=== PATIENT | male | born 1960 | race Caucasian/White ===

== ENCOUNTER → 2020-09-07 | Outpatient (REF) | payer OTHER ==
[2020-09-07 18:22] LABS: BACTERIA, URINE AUTO NEGATIVE (NEGATIVE); MUCUS, URINE SMALL (NEGATIVE); RBC, URINE AUTO 1 /HPF (0-3); SQUAMOUS EPITHELIAL CELL UR AU 0 /HPF (0-6); WBC, URINE AUTO 1 /HPF (0-3)
== END ==
LOC: M SMT 16:38
PROVIDERS: ATTEND Specialist
DX: R33.9 Retention of urine, unspecified (principal)

== ENCOUNTER 2020-10-25 13:21 | Day surgery (SDC) | payer OTHER ==
[~2020-10-25] VITALS: Ht 180.3 cm; Wt 79.4 kg
[~2020-10-25 13:21] MED LIST: ATEN25TA PO; ATOR1TAB21 PO; LOSA50TA88 PO; OMEP-221 PO; PROA1AER2 INH; TOPI25TA10 PO
[2020-10-25] MEDS ORDERED: ceFAZolin SOD 2 GM in IV 1 EA IV ONE (14:05)
[2020-10-25] MEDS ORDERED: LR 1,000 ML IV ONE (14:05)
[2020-10-25] MEDS ORDERED: ceFAZolin 2 GM/D5W 50 ML IV BAG (J0690 PER 500MG) As Ordered ONE (17:59)
[2020-10-25] MEDS ORDERED: ACETAMINOPHEN 1000MG 100ML IV BTL (OFIRMEV) (J0131 PER 10MG) As Ordered ONE (18:03)
[2020-10-25] MEDS ORDERED: propofoL 200 MG/20 ML VIAL As Ordered ONE (18:03)
[2020-10-25] MEDS ORDERED: dexameTHASONE 4 MG/ML 1ML VIAL (J1100 PER 1MG) As Ordered ONE (18:03)
[2020-10-25] MEDS ORDERED: fentaNYL 100 MCG/2 ML INJECTION (J3010) As Ordered ONE ×2 (18:03→19:06)
[2020-10-25] MEDS ORDERED: MIDAZOLAM INJ 2MG/2ML VIAL (J2250 PER 1MG) As Ordered ONE (18:03)
[2020-10-25] MEDS ORDERED: ONDANSETRON 4MG/2ML VIAL As Ordered ONE (18:03)
[2020-10-25] MEDS ORDERED: LIDOCAINE 2% 100MG/5ML SDV (FOR ANES.) As Ordered ONE (18:03)
[2020-10-25] MEDS ORDERED: SUGAMMADEX SODIUM 500 MG/5 ML VIAL (BRIDION) As Ordered ONE (18:03)
[2020-10-25] MEDS ORDERED: DESFLURANE 240 ML INHALANT As Ordered ONE (18:03)
[2020-10-25] MEDS ORDERED: ROCURONIUM BROMIDE 50 MG/5 ML VIAL As Ordered ONE (18:03)
[2020-10-25] MEDS ORDERED: METOCLOPRAMIDE INJ 10MG/2ML VIAL (J2765 PER 1) As Ordered ONE (18:03)
[2020-10-25] MEDS ORDERED: ALBUTEROL 6.7GM INHALER **FOR ANES. CART/OMNICELL ONLY As Ordered ONE (18:11)
[2020-10-25] MEDS ORDERED: ePHEDrine SULFATE 25 MG/5 ML(5MG/ML) SYRINGE As Ordered ONE (19:01)
[2020-10-25] MEDS ORDERED: GLYCOPYRROLATE INJ 0.2 MG/ML 2 ML VIAL As Ordered ONE (19:12)
[2020-10-25] MEDS ORDERED: FUROSEMIDE 100MG/10ML VIAL (J1940) As Ordered ONE (19:31)
[2020-10-25] MEDS ORDERED: CIPR-249 PO (20:11)
[2020-10-25] MEDS ORDERED: ACETAMINOPHEN TAB 650MG DOSE (2X325MG) PO PRN (20:20)
[2020-10-25] MEDS ORDERED: fentaNYL 100 MCG/2 ML INJECTION (J3010) IV PRN (20:20)
[2020-10-25] MEDS ORDERED: LR 1,000 ML IV SCH (20:20)
[2020-10-25] MEDS ORDERED: ONDANSETRON 4MG/2ML VIAL IV PRN (20:20)
[2020-10-25] MEDS: oxyCODONE 5MG TAB PO PRN ×2 (20:31→20:50)
[2020-10-25 20:55] VITALS: BP 143/67
--- NOTE | 2020-10-25 21:45 | RO ---
OPERATIVE NOTE DATE OF OPERATION: 10/25/2020 PREOPERATIVE DIAGNOSES: Benign prostatic hyperplasia with urinary retention. POSTOPERATIVE DIAGNOSIS: Benign prostatic hyperplasia with urinary retention, PROCEDURE: Cystoscopy, Button transurethral electro vaporization of the prostate. SURGEON: Brian Cook MD DAIRY HELPER: None. ANESTHESIA: General. OPERATIVE INDICATIONS: This is a 60-year-old male with benign prostatic hyperplasia and urinary retention refractory to medical therapy. He was brought to the operating room today for surgical treatment. DESCRIPTION OF PROCEDURE: The patient was brought to the operating room and general anesthesia was induced. Prophylactic antibiotics were infused. He was placed in a dorsal lithotomy position, prepped and draped in the usual sterile fashion. A resectoscope was inserted in the urethral meatus and advanced into the bladder using a visual obturator. Once inside the bladder, I made note of the location of both ureteral orifices. They were not close to the bladder neck. The patient had a trilobar benign prostatic hyperplasia of the fairly prominent median lobe. At this point, I began vaporizing hyperplastic tissue on the median lobe and then circumferentially at the bladder neck. I then vaporized hyperplastic tissue in both lateral lobes. I kept doing this until there was a clear channel through the prostate established. Once the prostate was widely patent, hemostasis was obtained using the coagulation current. Throughout the procedure, I made sure not to vaporize close to the ureteral orifices or distal to the verumontanum. Once satisfied with hemostasis, the resectoscope was removed and an 18 Serbian Olivares catheter was inserted into the bladder. The balloon was filled with 15 mL of sterile water. Then the catheter was connected to gravity drainage. This marked the conclusion of the procedure. The patient was taken out of dorsal lithotomy position, awakened from anesthesia and transported to the recovery room in stable condition. ESTIMATED BLOOD LOSS: 25 mL COMPLICATIONS: None. SPECIMENS: None. PLAN: The patient will follow up in urology clinic in approximately one week for catheter removal and voiding trial. MALVIN
== END 2020-10-25 21:18 | disposition home or self-care (01) ==
LOC: M SDC 13:21
PROVIDERS: ATTEND Urology
DX: N40.1 Benign prostatic hyperplasia with lower urinary tract symptoms (principal); I10 Essential (primary) hypertension; R91.1 Solitary pulmonary nodule; K21.9 Gastro-esophageal reflux disease without esophagitis; E78.5 Hyperlipidemia, unspecified; R51.9 Headache, unspecified; N28.1 Cyst of kidney, acquired; G47.33 Obstructive sleep apnea (adult) (pediatric); F17.210 Nicotine dependence, cigarettes, uncomplicated; Z79.899 Other long term (current) drug therapy
CPT/HCPCS: 52601; J0131; J0690; J1100; J1940; J2250; J2405; J2765; J3010